=== PATIENT | female | born 1955 | race Caucasian/White ===

== ENCOUNTER → 2017-08-07 | Outpatient (CLI) | payer OTHER, MEDICAID ==
[~2017-08-07] MED LIST: ADVAIR HFA 230M12 GM INH; BACTROBAN CREAM30 G1 TOP; CATAPRES0.2 MG PO; CLARITIN10 MG PO; COREG6.25 MG PO; COUMADIN 4 MG TA4 M1 PO; CRESTOR10 MG PO; DIOVAN 80 MG TA80 M1 PO; DUONEB 2.5-0.5 M3 ML INH; HYDROXYZINE PAM50 MG PO; KEFLEX500 MG PO; KETOCONAZOLE60 GM TP; LIDODERM 5%1 PATC1 TRANSDERM; METFORMIN HCL500 MG PO; MIRALAX17 GM PO; MUCINEX600 MG PO; NEXIUM40 MG PO; NORCO 5-325 TA1 EACH PO; NOVOLIN 70100 UNIT/1 SQ; PREDNISONE 20 M20 M1 PO; SINGULAIR 10 MG10 M1 PO; TRIAMCINOLONE A80 G2 TOP; TRINATE TABLET1 TAB PO; ULTRACET TABLET1 TAB PO; XANAX 0.5 MG0.5 MG PO; XOPENEX HF1 UDINHALE IH
== END ==
LOC: M.RAD 09:50
DX: Z12.31 Encounter for screening mammogram for malignant neoplasm of breast (principal)